=== PATIENT | male | born 1990 | race Caucasian/White ===

== ENCOUNTER 2018-03-13 03:11 | Emergency (ER) | payer OTHER ==
[~2018-03-13] VITALS: Ht 170.2 cm; Wt 68.3 kg
[2018-03-13 03:16] VITALS: Ht 170.2 cm; Wt 68.3 kg
[2018-03-13 04:35] VITALS: BP 136/74
== END 2018-03-13 04:35 | disposition home or self-care (01) ==
LOC: ED 03:11
DX: S91.112A Laceration without foreign body of left great toe without damage to nail, initial encounter (principal); W25.XXXA Contact with sharp glass, initial encounter; Y93.89 Activity, other specified; Y92.59 Other trade areas as the place of occurrence of the external cause; Y99.8 Other external cause status
CPT/HCPCS: 90715; J2001